=== PATIENT | female | born 1980 | race African-American/Black ===

== ENCOUNTER 2016-10-07 19:43 | Emergency (ER) | payer OTHER ==
[~2016-10-07] VITALS: Ht 160 cm; Wt 55.3 kg
[2016-10-07 19:55] VITALS: BP 125/84
[2016-10-07] MEDS ORDERED: MEDROL DOSPAK21 TAB PO (21:21)
== END 2016-10-07 21:31 | disposition home or self-care (01) ==
LOC: ER 19:43
DX: L23.3 Allergic contact dermatitis due to drugs in contact with skin (principal); T49.0X5A Adverse effect of local antifungal, anti-infective and anti-inflammatory drugs, initial encounter; F12.10 Cannabis abuse, uncomplicated; Z88.2 Allergy status to sulfonamides; Z88.1 Allergy status to other antibiotic agents; Y92.89 Other specified places as the place of occurrence of the external cause; J45.909 Unspecified asthma, uncomplicated